=== PATIENT | male | born 2000 | race Two or more races ===

== ENCOUNTER 2025-03-14 12:58 | Emergency (ER) | payer OTHER ==
[~2025-03-14] VITALS: Ht 167.6 cm; Wt 61.5 kg
--- NOTE | 2025-03-14 14:46 | ED.PDOC ---
HPI Comments 24 y/o M, presents to the ED for CC of laceration. Patient reports, that he was at work today (03/14/25) fixing a light pole when he accidentally cut the web of his skin between his left 1st and 2nd digits. Patient reports, that he is unsure when his last tetanus shot was; endorses wanting to update his immunization today (). Patient denies any other lacerations, numbness, or tingling in his left extremity. No other symptoms or modifiers present at this time. Chief Complaint: Laceration Time Seen by MD: 14:35 Primary Care Provider: UNKNOWN Reviewed Notes: Nurses Notes, Medications, Allergies Allergies: Coded Allergies: NO KNOWN ALLERGIES (Unverified , 03/14/25) Home Meds Active Scripts Ciprofloxacin Hcl (Cipro) 500 Mg Tab, 1 TAB PO BID for 5 Days, #10 TAB 0 Refills Prov:RIVERAMICK NP 03/14/25 Information Source: Patient Mode of Arrival: Ambulatory Severity: Moderate Severity of Laceration: Controlled Bleeding Complexity: Simple Timing: Minutes Prehospital treatment: None Laceration Location: Other (3cm laceration to the web of the 1st and 2nd phalanges) Mechanism: Metal Last Tetanus: Unknown Laceration Length (cm): 1 Skin Type: Jagged Depth of Injury: Skin Tendon Injury: 0% Discharge: Bloody Erythema: Localized to Wound Edges Associated Signs and Symptoms: None Past Medical History PAST MEDICAL HISTORY: Denies Surgical History: Denies all surgeries Family History Family History: Unknown Social History Smoker: Non-Smoker Alcohol: Denies ETOH Use Drugs: Denies Drug Use Lives In: Home Constitutional: denies: chills, diaphoresis, fatigue, fever, malaise, sweats, weakness, others EENTM: denies: blurred vision, double vision, ear bleeding, ear discharge, ear drainage, ear pain, ear ringing, eye pain, eye redness, hearing loss, mouth pain, mouth swelling, nasal discharge, nose bleeding, nose congestion, nose pain, photophobia, tearing, throat pain, throat swelling, voice changes, others Respiratory: denies: cough, hemoptysis, orthopnea, SOB at rest, shortness of breath, SOB with excertion, stridor, wheezing, others Cardiovascular: denies: chest pain, dizzy spells, diaphoresis, Dyspnea on exertion, edema, irregular heart beat, left arm pain, lightheadedness, palpitations, PND, syncope, others Gastrointestinal: denies: abdomen distended, abdominal pain, blood streaked bowels, constipated, diarrhea, dysphagia, difficulty swallowing, hematemesis, melena, nausea, poor appetite, poor fluid intake, rectal bleeding, rectal pain, vomiting, others Genitourinary: denies: burning, dysuria, flank pain, frequency, hematuria, incontinence, penile discharge, penile sore, pain, testicle pain, testicle swelling, urgency, others Neurological: denies: dizziness, fainting, headache, left sided numbness, left sided weakness, numbness, paresthesia, pre-existing deficit, right sided numbn ess, right sided weakness, seizure, speech problems, tingling, tremors, weakness, others Musculoskeletal: reports: others (pain to the left hand); denies: back pain, gout, joint pain, joint swelling, muscle pain, muscle stiffness, neck pain Integumetry: denies: bruises, change in color, change in hair/nails, dryness, laceration, lesions, lumps, rash, wounds, others Allergic/Immunocompromised: denies: Difficulty Healing, Frequent Infections, Hives, Itching, others Hematologic/Lymphatic: denies: anemia, blood clots, easy bleeding, easy bruising, swollen glands, others Endocrine: denies: excessive hunger, excessive sweating, excessive thirst, excessive urination, flushing, intolerance to cold, intolerance to heat, unexplained weight gain, unexplained weight loss, others Psychiatric: denies: anxiety, bipolar disorder, depression, hopeless, panic disorder, schizophrenia, sleepless, suicidal, others All Other Systems: Reviewed and Negative Physical Exam General Appearance: No Apparent Distress, Normal HEENT: Normal ENT Inspection, Pharynx Normal Neck: Full Range of Motion, Non-Tender, Normal, Normal Inspection Respiratory: Chest Non-Tender, Lungs Clear, No Accessory Muscle Use, No Respiratory Distress, Normal Breath Sounds Cardiovascular: No Edema, No Murmur, No Gallop, Normal Peripheral Pulses, Regular Rate/Rhythm Breast Exam: Deferred Gastrointestinal: No Organomegaly, Non Tender, No Pulsatile Mass, Normal Bowel Sounds, Soft Genitalia: Deferred Pelvic: Deferred Rectal: Deferred Extremities: No calf tenderness, Normal capillary refill, Normal inspection, Normal range of motion, Non-tender, No pedal edema Musculoskeletal : Apperance: Normal Neurologic: Alert, core checker II-XII nml as Tested, No Motor Deficits, Normal Affect, Normal Mood, No Sensory Deficits Cerebellar Function: Normal Reflexes: Normal Skin: Dry, Lacerations (3cm laceration to the web of the 1st and 2nd phalanges, Jagged edges), Normal Color, Warm Lymphatic: No Adenopathy Was a procedure done? Was a procedure done?: Yes Sedation Sedation?: No Laceration Repair : Location 3cm laceration to the web of the 1st and 2nd phalanges, Jagged edges Length 1cm Anesthetic: Lidocaine Laceration Repair Prep: Saline Laceration Repair Wound Comple: epidermis/dermis repair Laceration Repair: Number of sutures (6) Informed consent obtained: Yes Risks, benefits, and alternati: Yes Differential diagnosis Generic Laceration: Laceration Differential Diagnosis: N/A X-Ray, Labs, Meds, VS Vital Signs Date Time Temp Pulse Resp B/P (MAP) Pulse Ox O2 Delivery O2 Flow Rate FiO2 03/14/25 15:50 98.4 80 16 121/61 (81) 97 98.4 03/14/25 15:50 80 16 97 Room Air 03/14/25 13:19 98.4 80 16 121/61 (81) 97 98.4 X-Ray, Labs, Meds, VS Comment 24 y/o M, presents to the ED for CC of laceration. Patient arrives alert and oriented, ABC's intact, afebrile, vital signs stable, saturating well in room air On reevaluation, patient had symptomatic improvement. Patient is stable for discharge at this time. External notes reviewed. Test results and diagnostic imaging interpreted. All diagnostic findings, discharge care, education and instructions provided Follow-up with PCP in 2 to 3 days Patient verbalized understanding and agreed to treatment plan Vital signs stable, afebrile, no acute distress noted Patient ambulatory with strong steady gait Advised to return precautions for any new or worsening symptoms, return to ER immediately for re-evaluation Patient is aware that the purpose of this visit was for an acute medical emergency requiring emergent stabilization. Chronic conditions, including malignancies have not been ruled out. Patient is instructed to follow up with PCP as directed and discharge instructions for continued care and workup. If unable to arrange follow-up, patient is to return to the emergency department for reassessment. Patient (parent or legal guardian if applicable) was given verbal and written discharge instructions and acknowledges understanding. Additional MDM Review of External, Non-ED records: External records reviewed. Discussion with independent historian (EMS, family) history obtained from the patient/parents (if applicable) at bedside Chronic conditions affecting care: None Social determinants of health affecting care: None Consideration of admission (observation or admission): I considered escalation of care to admission for this patient, however given the reassuring workup, the patient is safe for outpatient management. Discussion with the Radiology: No Tests considered but not performed: Prescription medication considered but not given: Time of 1ST Reevaluation: 15:05 Reevaluation 1ST: Unchanged Patient Education/Counseling: Diagnosis, Treatment Family Education/Counseling: No Family Present Departure 1 Departure Time of Disposition: 15:19 Impression: Primary Impression: Thumb laceration Qualified Codes: S61.012A - Laceration without foreign body of left thumb without damage to nail, initial encounter Disposition: HOME / SELF CARE / HOMELESS Condition: Stable e-Prescriptions Ciprofloxacin Hcl (Cipro) 500 Mg Tab 1 TAB PO BID for 5 Days, #10 TAB 0 Refills Prov: MICK STAFFORD NP 03/14/25 Critical Care Note Critical Care Time?: No Stability Stability form required: No Heart Score Heart Score: Heart Score Response (Comments) Value History N/A 0 EKG N/A 0 Age N/A 0 Risk Factors N/A 0 Troponin N/A 0 Total 0 I personally scribed for MICK STAFFORD [employer]LLOWING MACHINE OPERATOR ([email or web address]) on 03/14/25 at 14:46. Electronically submitted by Taylor Sheridan ([email or web address]). I personally scribed for MICK STAFFORD NP ([email or web address]) on 03/14/25 at 15:00. Electronically submitted by Taylor Sheridan ([email or web address]). MICK STAFFORD [employer] MELLOWING MACHINE OPERATOR Mar 14, 2025 14:46
[2025-03-14] MEDS ORDERED: CIPR-173 PO (15:19)
[2025-03-14] MEDS: TETANUS-DIPTH-ACEL PERTUSSIS 0.5ML SYR Tdap IM ONE (15:34)
[2025-03-14] MEDS: NEOMYCIN-BACITRACIN-POLYM UNITDOSE PKG TOP OINT TOP ONE (15:35)
[2025-03-14 15:50] VITALS: BP 121/61; PULSE 80; RESP 16; TEMP 98.4; O2SAT 97
== END 2025-03-14 15:48 | disposition home or self-care (01) ==
LOC: ER 12:58
DX: S61.012A Laceration without foreign body of left thumb without damage to nail, initial encounter (principal); Z23 Encounter for immunization; W45.8XXA Other foreign body or object entering through skin, initial encounter; Y93.89 Activity, other specified; Y92.89 Other specified places as the place of occurrence of the external cause; Y99.8 Other external cause status
CPT/HCPCS: 12001; 90471; 90715; 99283; J2003; 12002